=== PATIENT | female | born 1975 | race Two or more races ===

== ENCOUNTER 2017-03-26 12:44 | Outpatient (CLI) | payer OTHER ==
[~2017-03-26 12:44] MED LIST: COZAAR50 MG; NORVASC5 MG PO
== END 2017-03-26 12:49 | disposition home or self-care (01) ==
LOC: RAD 501 12:44
DX: M25.571 Pain in right ankle and joints of right foot (principal)

== ENCOUNTER → 2017-04-20 | Emergency (ER) | payer OTHER ==
[~2017-04-20] VITALS: Ht 167.6 cm; Wt 89.8 kg
== END | disposition home or self-care (01) ==
LOC: ER 15:07
DX: J40 Bronchitis, not specified as acute or chronic (principal); R05 Cough

== ENCOUNTER 2018-08-13 09:27 | Outpatient (CLI) | payer OTHER | END 2018-08-13 09:28 | disposition home or self-care (01) | LOC: RAD 09:27 | DX: M25.561 Pain in right knee (principal) ==

== ENCOUNTER 2018-08-17 10:03 | Outpatient (CLI) | payer OTHER | END 2018-08-17 10:18 | disposition home or self-care (01) | LOC: MRI 10:03 | DX: M23.91 Unspecified internal derangement of right knee (principal); M25.561 Pain in right knee | CPT/HCPCS: 73718 ==

== ENCOUNTER 2020-03-13 06:32 | Outpatient (CLI) | payer OTHER ==
[2020-03-15] MEDS ORDERED: LOSARTAN-HCTZ1 EAC2 PO (09:55)
== END 2020-03-13 07:02 | disposition home or self-care (01) ==
LOC: LAB 06:32
PROVIDERS: ATTEND Orthopaedic Surgery
DX: D64.89 Other specified anemias (principal); E88.89 Other specified metabolic disorders; D68.8 Other specified coagulation defects; N39.0 Urinary tract infection, site not specified; Z22.322 Carrier or suspected carrier of Methicillin resistant Staphylococcus aureus; Z03.818 Encounter for observation for suspected exposure to other biological agents ruled out; Z76.89 Persons encountering health services in other specified circumstances; I49.8 Other specified cardiac arrhythmias; I10 Essential (primary) hypertension

== ENCOUNTER 2020-03-17 05:16 | Day surgery (SDC) | payer OTHER ==
[~2020-03-17 05:16] MED LIST changes: +LOSARTAN-HCTZ1 EAC2 PO
== END 2020-03-17 17:17 | disposition home or self-care (01) ==
LOC: CIR.AMB 05:16
PROVIDERS: ATTEND Orthopaedic Surgery
DX: M23.321 Other meniscus derangements, posterior horn of medial meniscus, right knee (principal); M23.341 Other meniscus derangements, anterior horn of lateral meniscus, right knee; M65.861 Other synovitis and tenosynovitis, right lower leg

== ENCOUNTER 2021-05-10 08:40 | Emergency (ER) | payer OTHER ==
[~2021-05-10] VITALS: Ht 167.6 cm; Wt 95.3 kg
[2021-05-10] MEDS ORDERED: LOSARTAN-HCTZ1 EAC1 PO (08:53)
== END 2021-05-10 10:35 | disposition left against medical advice (07) ==
LOC: ER 08:40
DX: Z53.21 Procedure and treatment not carried out due to patient leaving prior to being seen by health care provider (principal)

== ENCOUNTER 2021-05-10 11:00 | Outpatient (CLI) | payer OTHER ==
[~2021-05-10 11:00] MED LIST changes: +LOSARTAN-HCTZ1 EAC1 PO
== END 2021-05-10 12:00 | disposition home or self-care (01) ==
LOC: ASH CLINIC 11:00
PROVIDERS: ATTEND Emergency Medicine
DX: U07.1 COVID-19 (principal); Z23 Encounter for immunization

== ENCOUNTER 2022-10-08 09:51 | Emergency (ER) | payer OTHER ==
[~2022-10-08] VITALS: Ht 167.6 cm; Wt 98.4 kg
[2022-10-08] MEDS ORDERED: BACTRIM DS TAB1 EACH PO (12:15)
== END 2022-10-08 12:47 | disposition home or self-care (01) ==
LOC: ER 09:51
PROVIDERS: General Practice
DX: N39.0 Urinary tract infection, site not specified (principal); I10 Essential (primary) hypertension; Z88.6 Allergy status to analgesic agent; Z88.8 Allergy status to other drugs, medicaments and biological substances

== ENCOUNTER 2023-01-04 22:50 | Emergency (ER) | payer OTHER ==
[~2023-01-04] VITALS: Ht 167.6 cm; Wt 96.2 kg
[~2023-01-04 22:50] MED LIST changes: +BACTRIM DS TAB1 EACH PO
[2023-01-05 01:14] LABS: HEMATOCRIT 36.9 % (36.0-45.00); MEAN CELL VOLUME 82.6 fL (80.00-100.00); MEAN CORPUSCULAR HGB CONC 32.7 g/dl (32.0-36.0); PLATELET COUNT 365 K/uL (150-450); RED BLOOD COUNT 4.46 M/uL (4.00-6.00); RED CELL DISTRIBUTION WIDTH 16.4 % (11.5-14.5)
[2023-01-05 01:47] LABS: ALBUMIN 3.4 gm/dL (3.4-5.0); ALKALINE PHOSPHATASE 82 U/L (50-136); ALT/SGPT 19 U/L (12-78); AMYLASE 78 U/L (25-115); ANION GAP 11 (10.0-20.0); AST/SGOT 19 U/L (15-37); BILIRUBIN TOTAL 0.25 mg/dL (0.3-1.2); BILIRUBIN,CONJUGATED < 0.10 mg/dL (0.0-0.2); BILIRUBIN,UNCONJUGATED 0.15 mg/dL (0.0-0.6); BLOOD UREA NITROGEN 16 mg/dL (7-18); BUN CREA RATIO 16 (7.0-25.0); CALCIUM 8.3 mg/dL (8.5-10.1); CARBON DIOXIDE 31 mEq/L (21-32); CHLORIDE 96 mmol/L (98-107); CREATININE SERUM 0.98 mg/dL (0.55-1.02); GFR 61.37; GLOBULINA 4.6 G/DL (2.4-3.5); GLUCOSE FASTING 93 mg/dL (65-100); LIPASE 58 U/L (13-75); OSMOLALITY SERUM 271 MOSM/KG (275-295); SODIUM 135 mmol/L (136-145)
[2023-01-05 02:38] LABS: POTASSIUM 2.67 mEq/L (3.5-5.1)
[2023-01-05] MEDS ORDERED: PEPCID AC20 MG PO (02:57)
[2023-01-05] MEDS ORDERED: ONDANSETRON ODT8 MG PO (02:57)
[2023-01-05] MEDS ORDERED: TUSNEL LIQUID178 ML PO (03:44)
== END 2023-01-05 | disposition home or self-care (01) ==
LOC: ER 22:50
PROVIDERS: General Practice
DX: R53.81 Other malaise (principal); R10.9 Unspecified abdominal pain; E87.6 Hypokalemia; Z20.822 Contact with and (suspected) exposure to COVID-19; I10 Essential (primary) hypertension; Z88.6 Allergy status to analgesic agent; Z88.8 Allergy status to other drugs, medicaments and biological substances

== ENCOUNTER 2024-12-22 10:38 | Outpatient (CLI) | payer OTHER ==
[~2024-12-22 10:38] MED LIST changes: +CLORAZEPATE D3.75 MG; +IRBESARTAN; +ONDANSETRON ODT8 MG PO; +PEPCID AC20 MG PO; +TUSNEL LIQUID178 ML PO
== END 2024-12-22 10:41 | disposition home or self-care (01) ==
LOC: RAD 10:38
PROVIDERS: ATTEND Orthopaedic Surgery
DX: M25.562 Pain in left knee (principal)